=== PATIENT | male | born 1980 | race Two or more races ===

== ENCOUNTER 2019-09-20 15:54 | Emergency (ER) | payer SELFPAY ==
[~2019-09-20] VITALS: Ht 165.1 cm; Wt 68.0 kg
[2019-09-20 16:00] VITALS: BP 131/98
[2019-09-20] MEDS ORDERED: LORazepam Inj 2mg/ml 1ml IV ONE (16:00)
--- NOTE | 2019-09-20 16:24 | Emergency Room Report ---
History of Present Illness General Chief Complaint: Alcohol Intoxication Source: Patient, EMS Present Illness HPI 39-year-old male presented from the street due to bizarre behavior. He admits to drinking and using methamphetamine recently. He has no pain no nausea no vomiting. Denies any fevers coughing or shortness of breath. He was brought in by EMS. Patient denies any suicidal or homicidal ideation. No medical complaints. Denies any medical history. Allergies: Coded Allergies: No Known Allergies (Unverified , 09/20/19) COVID-19 Screening Contact w/high risk pt: No Recent Travel to affected area: No Experienced COVID-19 symptoms?: No COVID-19 Testing performed PHOTO LAB MANAGER: No Patient History Reviewed Nursing Documentation: PMH: Agreed; PSxH: Agreed Nursing Documentation-PMH Past Medical History: No Stated History Review of Systems All Other Systems: negative except mentioned in HPI Physical Exam Vital Signs Date Time Temp Pulse Resp B/P (MAP) Pulse Ox O2 Delivery O2 Flow Rate FiO2 09/20/19 15:50 98.4 120 20 126/101 (109) 99 Room Air Sp02 EP Interpretation: reviewed, normal General Appearance: well appearing, no apparent distress Head: normocephalic, atraumatic Eyes: bilateral eye PERRL, bilateral eye EOMI ENT: hearing grossly normal, moist mucus membranes Neck: full range of motion, supple Respiratory: lungs clear, normal breath sounds, no rhonchi, no respiratory distress, no retraction, no wheezing Cardiovascular #1: normal peripheral pulses, no murmur, tachycardia Gastrointestinal: non tender, soft, non-distended, no guarding Neurologic: alert, oriented x3, normal gait, no focal defects Psychiatric: no suicidal/homicidal ideation Skin: normal color, warm/dry Medical Decision Making Diagnostic Impression: Primary Impression: Methamphetamine abuse ER Course Patient presented from the street for bizarre behavior. Patient admits to drinking and using methamphetamine today. We did give patient 1 mg of Ativan. I did order IV fluids which were running however patient removed his IV. He requested to be discharged. Patient was discharged in the care of the brother. He had no suicidal homicidal ideation. He was mildly tachycardic I believe most likely secondary to his methamphetamine use. Patient instructed to avoid further methamphetamine use. He was improved after Ativan. Last Vital Signs Date Time Temp Pulse Resp B/P (MAP) Pulse Ox O2 Delivery O2 Flow Rate FiO2 09/20/19 15:50 98.4 120 20 126/101 (109) 99 Room Air Disposition: HOME, SELF-CARE Condition: Improved Patient Instructions: Stimulant Use Disorder-Methamphetamines Andi Aranda M.D. Sep 20, 2019 16:24
[2019-09-20 17:05] VITALS: BP 134/94
== END 2019-09-20 17:05 | disposition home or self-care (01) ==
LOC: EDBD 15:54 → EMR 17:00
DX: F15.10 Other stimulant abuse, uncomplicated (principal)
CPT/HCPCS: 96361; 96374; 99284; J7030